=== PATIENT | female | born 2000 | race African-American/Black ===

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

== ENCOUNTER 2022-07-03 12:46 | Emergency (ER) | payer BC, OTHER ==
[2022-07-03] MEDS ORDERED: Acetaminophen 325 MG TAB ONE (13:43)
[2022-07-03 14:24] LABS: Bacteria/HPF None Seen HPF (None Seen); Bilirubin Negative (Negative); Blood, Urine 2+ (Negative); Clarity Clear (Clear); Glucose, Urine (Dipstick) Normal (Negative); Ketone, Urine 60 mg/dL (Negative); Leukocyte Negative Leu/uL (Negative); Nitrite Negative (Negative); Protein, Urine (Dipstick) 20 mg/dL (Neg-Trace); Specific Gravity, Urine 1.029 (1.002-1.036); Squamous Epithelial 0-3 HPF (0-3); Urobilinogen Normal mg/dL (Less than 2); WBC/HPF 0-3 HPF (0-3)
== END 2022-07-03 14:56 | disposition home or self-care (01) ==
LOC: ERS 12:46
DX: O26.899 Other specified pregnancy related conditions, unspecified trimester (principal); Z3A.00 Weeks of gestation of pregnancy not specified
CPT/HCPCS: 81003; 81015; 93005

== ENCOUNTER 2022-10-03 16:30 | Emergency (ER) | payer BC, OTHER ==
[2022-10-03 17:26] LABS: #Basophils 0.1 thou/uL (0.0-0.2); #Eosinphils 0.1 thou/uL (0.0-0.7); #Lymphocytes 1.5 thou/uL (1.20-3.40); #Monocytes 0.8 thou/uL (0.11-0.59); #Neutrophils 9.2 thou/uL (1.40-6.50); %Basophils 1.1 % (0.0-1.0); %Eosinophils 1.1 % (0.0-10.0); %Lymphocytes 13.1 % (28.0-48.0); %Monocytes 6.6 % (0.0-4.0); %Neutrophils 78.2 % (31.0-61.0); Hemoglobin 10.9 g/dL (12.0-16.0); Mean Corpuscular HGB CONC 34.1 g/dL (32.0-36.0); Mean Corpuscular Volume 87.8 fl (78.0-98.0); Mean Platelet Volume 8.1 fL (7.4-10.4); Platelet Count 263 10x3/uL (130-400); RBC Distribution Width 12.4 % (11.5-14.5); Red Blood Cell (RBC) Count 3.64 mill/uL (4.00-5.20); White Blood Cell (WBC) Count 11.8 10x3/uL (4.8-10.8)
[2022-10-03] MEDS ORDERED: Promethazine 25 MG TAB ONE (17:40)
[2022-10-03] MEDS ORDERED: Acetaminophen 500 MG TAB ONE (17:40)
[2022-10-03 17:46] LABS: ALT (SGPT) 13 U/L (8-55); AST (SGOT) 16 U/L (5-34); Albumin 3.5 g/dL (3.5-5.0); Alkaline Phosphatase 62 U/L (40-100); Anion Gap 12 mmol/L (10-20); BUN (Urea Nitrogen) 7 mg/dL (7.0-18.7); Bilirubin, Total Less than 0.2 mg/dL (0.2-1.2); Calc. Creatinine Clearance 0 mL/min (70-130); Calcium 8.5 mg/dL (7.8-10.44); Carbon Dioxide 22 mmol/L (22-29); Chloride 106 mmol/L (98-107); Estimated GFR 127; Globulin 3.7 g/dL (2.4-3.5); Glucose 97 mg/dL (70-105); Lipase 24 U/L (8-78); Potassium 3.4 mmol/L (3.5-5.1); Protein, Total 7.2 g/dL (6.0-8.3); Sodium 137 mmol/L (136-145)
[2022-10-03 18:27] LABS: Bacteria/HPF None Seen HPF (None Seen); Bilirubin Negative (Negative); Blood, Urine Trace (Negative); Clarity Clear (Clear); Glucose, Urine (Dipstick) Normal (Negative); Ketone, Urine Negative (Negative); Leukocyte Negative Leu/uL (Negative); Nitrite Negative (Negative); Protein, Urine (Dipstick) Negative (Neg-Trace); RBC/HPF 0-3 HPF (0-3); Squamous Epithelial 0-3 HPF (0-3); Urobilinogen Normal mg/dL (Less than 2); WBC/HPF None Seen HPF (0-3)
== END 2022-10-03 20:45 | disposition home or self-care (01) ==
LOC: ERS 16:30
DX: O99.612 Diseases of the digestive system complicating pregnancy, second trimester (principal); D72.829 Elevated white blood cell count, unspecified; Z3A.24 24 weeks gestation of pregnancy
CPT/HCPCS: 36415; 76856; 80053; 81003; 81015; 83690; 85025; 93005; 93970; 93976; Q0169

== ENCOUNTER 2023-09-15 14:09 | Emergency (ER) | payer BC, OTHER, SELFPAY ==
[2023-09-15 15:13] LABS: Influenza A by NAA Not Detected (NotDetected); Influenza B by NAA Not Detected (NotDetected); SARS-CoV-2 NAA Rapid Test Not Detected (NotDetected)
[2023-09-15] MEDS ORDERED: Dexamethasone 10 MG/ML VIAL ONE (16:04)
[2023-09-15] MEDS ORDERED: Ipratropium/Albuterol 3 ML NEB ONE (16:28)
== END 2023-09-15 17:25 | disposition home or self-care (01) ==
LOC: ERS 14:09
DX: B34.9 Viral infection, unspecified (principal)
CPT/HCPCS: 71045; 87081; 87430; 93005; 94640; J1100; J7620